=== PATIENT | male | born 1940 | race Hispanic/Latino ===

== ENCOUNTER 2019-01-24 07:11 | Day surgery (SDC) | payer MEDICARE ==
[2019-01-24] MEDS ORDERED: NACL 0.9% 500 ML 500 ML IV SCH (08:00)
[2019-01-24 08:17] LABS: Basophils % (Auto) 0.6 % (0.0-1.8); Eosinophils # (Auto) 0.2 K/mm3 (0.0-0.4); Eosinophils % (Auto) 3.1 % (0.0-4.3); Hemoglobin 12.8 gm/dl (11.8-15.2); Lymphocytes # (Auto) 1.6 K/mm3 (1.2-5.4); Lymphocytes % (Auto) 21.5 % (13.4-35.0); Mean Corpuscular HGB Conc 34 % (32-34); Mean Corpuscular Volume 87 fl (84-94); Monocytes # (Auto) 0.6 K/mm3 (0.0-0.8); Monocytes % (Auto) 8.2 % (0.0-7.3); Platelet Count 219 K/mm3 (140-440); Red Blood Count 4.26 M/mm3 (3.65-5.03); Red Cell Distribution Width 14.2 % (13.2-15.2)
[2019-01-24 08:29] LABS: INR 0.98 (0.87-1.13); Partial Thromboplastin Time 27.7 Sec. (24.2-36.6)
[2019-01-24 08:30] LABS: BUN/Creatinine Ratio 14; Blood Urea Nitrogen 15 mg/dL (9-20); Calcium 9.2 mg/dL (8.4-10.2); Hemolysis Index 3
[2019-01-24] MEDS ORDERED: ECOTRIN PO NR (08:30)
[2019-01-24] MEDS ORDERED: HEPARIN/NS 5000 UNIT/500ML(CATH LAB) 1,000 ML IR ONE (09:19)
[2019-01-24] MEDS ORDERED: HEPARIN 10,000 UNITS/10 ML ONE (09:19)
[2019-01-24] MEDS: VERSED ONE ×2 (09:34→10:00)
[2019-01-24] MEDS: XYLOCAINE 2% INFILTRATI ONE ×2 (09:34→10:06)
[2019-01-24] MEDS: SUBLIMAZE ONE ×2 (09:34→10:00)
--- NOTE | 2019-01-24 11:02 | Cardiac Catherization Report ---
REFERRING PHYSICIAN: Dr. Pipe Aldana. INDICATION FOR PROCEDURE: The patient is an exceedingly pleasant 78-year-old gentleman with multiple medical problems including hypertension, atrial fibrillation, coronary artery disease, status post coronary bypass surgery, who presents with worsening shortness of breath, abnormal nuclear stress test, referred for left heart catheterization, has been taken off anticoagulation for the procedure. Risks, benefits, alternatives discussed prior to obtaining informed consent. PROCEDURE IN DETAIL: The patient was brought to catheterization lab in a postabsorptive state, prepped and draped in sterile fashion. The right groin was prepped and draped in sterile fashion. A standard 5-Belgian sheath placed in the right common femoral artery via modified Seldinger technique. All exchanges were performed to exchange a J-tip guidewire. JL3.5 catheter was used to engage the left main. No dampening or ventricularization. Cineangiography performed in all projections. JR4 catheter used to cross the aortic valve under fluoroscopic guidance. Left ventriculography performed in 30 COLON and 30 PANAMANIAN projections via hand injections, catheter flushed. Manual pullback performed with continuous pressure monitoring. Catheter used to engage the right coronary. No dampening or ventricularization. Cineangiography performed in in multiple projections. Next, catheter was used to engage all right aortocoronary conduits. Angiography performed in all views. Next, catheter used to engage the left subclavian. Left subclavian is very tortuous and difficult to navigate. Selective third order mid left subclavian angiography was performed. Finally, selective MARTINEZ angiography was performed. Next, catheter was removed carefully out of subclavian over a wire. Next, sheath removed. Manual pressure was used to achieve hemostasis. No complications noted. The patient tolerated the procedure well. I directly supervised the administration of moderate sedation from 10:00 a.m. to 10:35 a.m. with fentanyl and Versed. FINDINGS: Aortic pressure is 170/80, LV pressure is 170, LVEDP of 25 mmHg. Left ventriculography reveals a preserved ejection fraction approximately 50-55%. No evidence of aortic stenosis. CORONARY ANATOMY: This is a right dominant system. Right coronary is occluded at the ostium. Left main with severe disease, chronic total occlusions of the proximal left circumflex and ostial LAD, SVG to right coronary is widely patent. SVG to first diagonal is widely patent. SVG to OM trunk is widely patent. MARTINEZ to LAD is patent. Distal recipient LAD with moderate diffuse small vessel disease, subclavian was tortuous, but patent. No evidence of a gradient and no evidence of significant stenosis. Patent left vertebral. The patient remained in atrial fibrillation with controlled ventricular response throughout the procedure. CONCLUSIONS: 1. Severe and diffuse unga epicardial coronary disease with a chronic total occlusion of the ostial LAD and ostial left circumflex and ostial right coronary. Patent SVGs to distal RCA, OM trunk, first diagonal are noted. Patent MARTINEZ to LAD is noted with moderate diffuse small vessel disease in the recipient distal LAD. 2. Preserved left ventricular systolic performance, estimated ejection fraction of 50-55%. 3. No evidence of aortic stenosis. 4. High normal LVEDP. 5. Atrial fibrillation with controlled ventricular response throughout. 6. Patent left subclavian. At this point, continue risk factor modification. We will check echocardiogram and Holter monitor to further elucidate etiology of his dyspnea. We will consider adding low dose Lasix, standard groin care. Results of procedure explained to the patient and family. All questions and concerns were addressed. Restart anticoagulation and follow up with me in the office. JOB# [id number] SBM/[id number]
[2019-01-24 13:34] VITALS: BP 158/86
== END 2019-01-24 14:30 | disposition home or self-care (01) ==
LOC: CATHLABREC 07:11
PROVIDERS: ATTEND Internal Medicine
DX: R06.02 Shortness of breath (principal); R94.39 Abnormal result of other cardiovascular function study; I10 Essential (primary) hypertension; I48.91 Unspecified atrial fibrillation; I25.10 Atherosclerotic heart disease of native coronary artery without angina pectoris; E11.9 Type 2 diabetes mellitus without complications; I49.3 Ventricular premature depolarization; E78.00 Pure hypercholesterolemia, unspecified; G47.30 Sleep apnea, unspecified; K21.9 Gastro-esophageal reflux disease without esophagitis; F32.9 Major depressive disorder, single episode, unspecified; Z98.890 Other specified postprocedural states; Z79.899 Other long term (current) drug therapy; Z79.82 Long term (current) use of aspirin; Z79.84 Long term (current) use of oral hypoglycemic drugs; Z87.891 Personal history of nicotine dependence; Z85.89 Personal history of malignant neoplasm of other organs and systems; Z95.1 Presence of aortocoronary bypass graft
CPT/HCPCS: 36415; 80048; 82962; 85025; 85610; 85730; 93005; 93010; 93459; 99156; 99157; C1769; C1894; J1644; J2250; J3010; J7040; Q9967